=== PATIENT | female | born 1970 | race Caucasian/White ===

== ENCOUNTER 2017-08-12 07:05 | Emergency (ER) | payer SELFPAY ==
[~2017-08-12] VITALS: Ht 172.7 cm; Wt 72.6 kg
[2017-08-12 07:13] VITALS: BP 118/86
--- NOTE | 2017-08-12 08:07 | ED INFLUENZA/URI COMPLAINT ---
History of Present Illness General Chief Complaint: Upper Respiratory Sx/Fever Stated Complaint: URI/WEAKNESS Source: patient, old records Exam Limitations: no limitations Vital Signs & Intake/Output Vital Signs & Intake/Output Vital Signs Date Time Temp Pulse Resp B/P B/P Pulse O2 O2 Flow FiO2 Mean Ox Delivery Rate 08/12 0852 100.0 08/12 0831 100.3 08/12 0830 98 Room Air 08/12 0713 100.3 110 20 118/86 98 Room Air Allergies Coded Allergies: No Known Allergies (06/04/16) Reconcile Medications Codeine Phosphate/Guaifenesi (Codeine-Guaifen 10-100 MG/5 Ml) 10 MG-100 MG/5 ML LIQUID 2 TBSP PO Q4 HRS NEEDED PRN COUGH (Reported) Codeine Phosphate/Guaifenesi (Guaifen-Codeine 200-20 MG/10ML) 20 MG-200 MG/10 ML LIQUID 10 ML PO Q6HR PRN COUGH Oseltamivir Phosphate (Tamiflu) 75 MG CAPSULE 1 CAP PO BID FLU Triage Note: PT TO ED C/O "SICK SINCE FRIDAY". C/O CHILLS AND COUGH. TEMP 100.3 IN TRIAGE. Triage Nurses Notes Reviewed? yes Onset: Gradual Duration: day(s): (3), constant Timing: recent history Severity: moderate Severity Numbers: 5 Prior Episodes/Possible Cause: occassional episodes No Modifying Factors: none Associated Symptoms: cough, nasal congestion, nasal drainage HPI: 46-year-old female with no medical history presents to ER for evaluation complaining of a three-day history of generalized bodyaches subjective chills fever nonproductive cough sore throat and rhinorrhea congestion. She's been using an old prescription of Robitussin with codeine with improvement of her cough. She does not smoke. No chest pain abdominal pain. She states she had one episode of diarrhea yesterday no vomiting she's had a normal bowel movement since. No modifying factors or associated symptoms otherwise. (Patrick Saravia) Past History Travel History Traveled to [place] past 21 day No Medical History Any Pertinent Medical History? none Surgical History Surgical History: none Psychosocial History What is your primary language Turkish Tobacco Use: Quit >30 days ago ETOH Use: denies use Illicit Drug Use: denies illicit drug use Family History Hx Contributory? No (Patrick Saravia) Review of Systems Review of Systems Constitutional: Reports: see HPI. Comments Review of systems: See HPI, All other systems negative. Constitutional, chills fever, HEENT: no sore throat no congestion Cardiovascular: No chest pain Skin: no rashes, no change in skin Respiratory: No dyspnea cough no sputum no hemoptysis GI: No nausea no vomiting, no diarrhea Muscle skeletal: No joint pain, no back pain Neurologic: , no headache Heme/endocrine: No bruising Immunology: No lymphadenopathy (Patrick Saravia) Physical Exam Physical Exam General Appearance: well developed/nourished, no apparent distress, alert, awake , comfortable Ears, Nose, Throat: normal ENT inspection Comments: Well-developed well-nourished patient in no apparent distress. Head/Face: Atraumatic, no maxillary/frontal sinus tenderness, no facial swelling Eyes: PERRL, EOMI, no conjunctival injection Ear:External auditory canal and Tympanic membranes clear, no erythema Nose: atraumatic.Normal inspection Throat: Moist mucous membranes.Pharynx normal. No pharyngeal erythema/exudate seen. No stridor/drooling or assymetry. No swelling or edema. Neck: Supple, no lymphadenopathy, FROM Back: FROM Cardiovascular: Regular rate and rhythms no murmurs rubs or gallops, Respiratory: o respiratory distress. Patient speaking in full complete sentences. Breath sounds clear to auscultation bilaterally: NO W/R/R Extremities: full range of motion Neuro: awake, alert, and oriented to person, place and time. There were no obvious focal neurologic abnormalities. Skin: Warm & dry;No appreciable rash on exposed skin Psych: Mood affect normal, normal memory normal judgment. Core Measures Sepsis Present: No Sepsis Focused Exam Completed? No (Patrick Saravia) Progress Differential Diagnosis: influenza, otitis, pneumonia, pharyngitis, sinusitis, bronchitis Plan of Care: Orders Procedure Date/time Status RAPID VIRAL INFLUENZA A 08/12 821 Complete VIRAL CULTURE 08/12 821 Active Laboratory Tests 08/12/17 0822: Virus Culture Pending Microbiology 08/12 830 NASOPHARYN: Influenza Virus A & B Rapid Smear - COMP INFLUENZA TYPE B FLU SWAB, XRAY ORDERED. I discussed with the patient at length all of their results. I had an extensive conversation regarding need for close follow up with their primary care physician this week as well as return precautions. I answered all of their questions, they feel comfortable with the plan and follow-up care. I discussed with the patient/family the medications that they will receive. I gave them signs and symptoms that could indicate an adverse reaction. I have advised them to limit their activities until they can see how they respond to the medication. Diagnostic Imaging: Viewed by Me: Radiology Read. Discussed w/RAD: Radiology Read. Radiology Impression: PATIENT: JOCELYN JAMES PRESENT AGE: 46 PATIENT ACCOUNT NO: [id number] : 70 LOCATION: [facility] ORDERING PHYSICIAN: Patrick GAVIN SERVICE DATE: 08/12/17 EXAM TYPE: RAD - XRY- CHEST XRAY, TWO VIEWS EXAMINATION: XR CHEST CLINICAL INFORMATION: Cough and fever COMPARISON: None TECHNIQUE: 2 views of the chest were obtained. FINDINGS: The lungs are well expanded. There is no focal consolidation, edema, or effusion. No pneumothorax. The cardiomediastinal silhouette is within normal limits. No acute osseous abnormality. IMPRESSION: No acute pulmonary findings. DICTATED BY: Marvin Pimentel MD DATE/TIME DICTATED:08/12/17838 SUSTAINABILITY PROJECT COORDINATOR:BRIAN DATE/TIME TRANSCRIBED:08/12/17838 CONFIDENTIAL, DO NOT COPY WITHOUT APPROPRIATE AUTHORIZATION. <Electronically signed in Other Vendor System> SIGNED BY: Marvin Pimentel MD 08/12/17841 Initial ED EKG: none (Patrick Saravia) Departure Departure Time of Disposition: 848 Disposition: HOME OR SELF CARE Condition: Stable Clinical Impression Primary Impression: Influenza B Referrals: Norma Purcell DO (PCP/Family) Additional Instructions: TAMIFLU DIRECTED. GUAIFENSIN WITH CODEINE FOR COUGH. USE CAUTION THIS IS A NARCOTIC AND CAN MAKE YOU DROWSY. THESE WERE SENT TO THE [facility]. INTERCHANGE TYLENOL AND MOTRIN EVERY 4-6 HOURS. Departure Forms: Customer Survey General Discharge Information Prescriptions: Current Visit Scripts Oseltamivir Phosphate (Tamiflu) 1 CAP PO BID #10 CAP Codeine Phosphate/Guaifenesi (Guaifen-Codeine 200-20 MG/10ML) 10 ML PO Q6HR PRN COUGH #200 ML (Patrick Saravia) PA/ICING MAKER Co-Sign Statement Statement: ED Attending supervision documentation- I saw and evaluated the patient. I have also reviewed all the pertinent lab results and diagnostic results. I agree with the findings and the plan of care as documented in the PA's/ICING MAKER's documentation. x I have reviewed the ED Record and agree with the PA's/ICING MAKER's documentation. [] Additions or exceptions (if any) to the PAs/ICING MAKER's note and plan are summarized below: [] (Anthony MAC,Alex)
[2017-08-12] MEDS ORDERED: CODEINE-GUAIFE120 M1 PO (08:24)
--- NOTE | 2017-08-12 08:42 | RADIOLOGY REPORT ---
EXAMINATION: XR CHEST CLINICAL INFORMATION: Cough and fever COMPARISON: None TECHNIQUE: 2 views of the chest were obtained. FINDINGS: The lungs are well expanded. There is no focal consolidation, edema, or effusion. No pneumothorax. The cardiomediastinal silhouette is within normal limits. No acute osseous abnormality. IMPRESSION: No acute pulmonary findings.
[2017-08-12] MEDS ORDERED: GUAIFEN-CODEINE10 ML PO (08:51)
[2017-08-12] MEDS ORDERED: TAMIFLU75 M1 PO (08:51)
== END 2017-08-12 09:09 ==
LOC: ERH 07:05
DX: J11.1 Influenza due to unidentified influenza virus with other respiratory manifestations (principal); Z87.891 Personal history of nicotine dependence
CPT/HCPCS: 71046; 87804; 87804-59